=== PATIENT | male | born 1990 | race Two or more races ===

== ENCOUNTER 2020-02-26 12:09 | Emergency (ER) | payer SELFPAY ==
[~2020-02-26] VITALS: Ht 172.7 cm; Wt 61.2 kg
[2020-02-26 12:09] VITALS: BP 126/88
[2020-02-26] MEDS ORDERED: HALOPERIDOL LACTATE INJ 5 MG/ML VIAL IM ONE (12:30)
[2020-02-26] MEDS ORDERED: LORAZEPAM INJ 2 MG/ML VIAL IM ONE (12:30)
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
== END 2020-02-26 12:59 | disposition left against medical advice (07) ==
LOC: ER 12:13
DX: F15.10 Other stimulant abuse, uncomplicated (principal); R45.1 Restlessness and agitation; Z59.0 Homelessness